=== PATIENT | male | born 1955 | race Caucasian/White ===

== ENCOUNTER 2022-05-26 11:12 | Emergency (ER) | payer MEDICARE, SELFPAY ==
--- NOTE | ~2022-05-26 | XR_ITS ---
EXAMINATION: XR hand LT 2V DATE: 05/26/2022 14:28 INDICATION: Dislocation of left fifth carpometacarpal joint status post reduction. TECHNIQUE: 3 views of left hand were obtained. COMPARISON: Left hand radiographs at 12:59 PM FINDINGS: There is persistent medial dislocation of fifth metacarpal with respect to distal hamate. T here are bone fragment remains near fifth carpometacarpal joint. There is radial subluxation of secon d distal phalanx with respect to the middle phalanx. There is mild osteoarthritis of triscaphe joint, first ca rpometacarpal joint, and many of the metacarpophalangeal joints and interphalangeal joints. There is moderate osteoarthritis of second and third metacarpophalangeal joints and first interphalangeal join t. There is severe osteoarthritis of second distal interphalangeal joint. IMPRESSION: 1. Persistent dislocation of fifth carpometacarpal joint. Small bone fragments may be fractures of di stal hamate and/or base of fifth metacarpal. 2. Polyarticular osteoarthritis. IMPRESSION: 1. Reviewed, dictated and finalized at location A. IMPRESSION: 1. Persistent dislocation of fifth carpometacarpal joint. Small bone fragments may be fractures of distal hamate and/or base of fifth metacarpal. 2. Polyarticular osteoarthritis. IMPRESSION: 1.
--- NOTE | ~2022-05-26 | XR_ITS ---
EXAMINATION: XR hand LT min 3V DATE: 05/26/2022 13:04 INDICATION: Left hand injury. TECHNIQUE: 3 views of left hand were obtained. COMPARISON: None. FINDINGS: There is medial dislocation of fifth metacarpal with respect to the hamate. There are small bone fragments near fifth carpometacarpal joint. There is radial subluxation of second distal phalan x with respect to the middle phalanx. There is mild osteoarthritis of triscaphe joint, first carpomet acarpal joint, and many of the metacarpophalangeal joints and interphalangeal joints. There is modera te osteoarthritis of second and third metacarpophalangeal joints and first interphalangeal joint. The re is severe osteoarthritis of second distal interphalangeal joint. IMPRESSION: 1. Dislocation of fifth carpometacarpal joint. Small bone fragments may be fractures of distal hamate and/or base of fifth metacarpal. 2. Polyarticular osteoarthritis. Reviewed, dictated and finalized at location A. IMPRESSION: 1. Dislocation of fifth carpometacarpal joint. Small bone fragments may be frac tures of distal hamate and/or base of fifth metacarpal. 2. Polyarticular osteoarthritis.
[2022-05-26 11:28] VITALS: BP 159/77; PULSE 61; RESP 16; TEMP 36.6; O2SAT 100
--- NOTE | 2022-05-26 12:47 | ED.UPPEXIN ---
HPI - Extremity Injury (Upper) General Chief Complaint: Extremity Injury, Upper Stated Complaint: dislocated L 5th digit, from Time Seen by Provider: 05/26/22 12:13 History of Present Illness HPI narrative: 67-year-old male presents to the emergency room for evaluation of injury to his left fifth digit. Patient states yesterday he lost his footing and slipped and fell landing on his left hand. Noticed an obvious bony abnormality. Patient was seen at an outside urgent care prior to ER evaluation and was told to come here because his finger was cut and needed to be reduced. Related Data Allergies Allergy/AdvReac Type Severity Reaction Status Date / Time benzonatate AdvReac Swelling Verified 05/26/22 11:39 [From Wilian Mares] lisinopril AdvReac Hives Verified 05/26/22 11:39 Review of Systems Review of Systems: CONSTITUTIONAL: Denies fever, chills, or sweats. EYES: Denies visual changes, redness, or discharge. ENT: Denies rhinorrhea, congestion, sore throat, or otalgia. CARDIOVASCULAR: Denies chest pain, palpitations, or edema. RESPIRATORY: Denies cough or dyspnea. GASTROINTESTINAL: Denies abdominal pain, nausea, vomiting, or diarrhea. GENITOURINARY: Denies dysuria or hematuria. SKIN: Denies rash or itching. MUSCULOSKELETAL: Reports left fifth digit pain NEUROLOGIC: Denies headache, numbness, dizziness, or weakness. PSYCHIATRIC: Denies anxiety or depression. Exam Narrative: GENERAL: Well-appearing, well-nourished, no physical limitations, and in no acute distress. HEAD: Normocephalic, atraumatic. EYES: Conjunctivae normal, PERRLA and EOMI. CHEST: Clear to auscultation. No respiratory distress. No wheezes rales or rhonchi. No tenderness. HEART: Regular rate and rhythm. No murmur heard. Normal peripheral pulses. EXTREMITIES: Left hand: Point tenderness with soft tissue swelling on the medial side and base the fifth metacarpal. Medially displaced fifth digit. Neurovascular is intact distally SKIN: Warm, dry, no rash. No noted wounds NEURO: No focal deficits. Alert and oriented x3. MAEW. CN's II-XI intact bilaterally, normal gait PSYCH: Cooperative. Normal mood and affect. Course Vital Signs Vital signs: Vital Signs Temperature 36.6 C 05/26/22 11:28 Pulse Rate 61 05/26/22 11:28 Respiratory Rate 16 05/26/22 11:28 Blood Pressure 159/77 H 05/26/22 11:28 Pulse Oximetry 100 05/26/22 11:28 Oxygen Delivery Room Air 05/26/22 11:28 Temperature 36.6 C 05/26/22 11:28 Pulse Rate 61 05/26/22 11:28 Respiratory Rate 16 05/26/22 11:28 Blood Pressure 159/77 H 05/26/22 11:28 Pulse Oximetry 100 05/26/22 11:28 Oxygen Delivery Room Air 05/26/22 11:28 MDM - Extremity Injury (Upper) Imaging Data Radiologist's impression: Impressions Hand X-Ray 05/26/22 13:05 IMPRESSION: 1. Dislocation of fifth carpometacarpal joint. Small bone fragments may be fractures of distal hamate and/or base of fifth metacarpal. 2. Polyarticular osteoarthritis. Hand X-Ray 05/26/22 14:31 IMPRESSION: 1. Persistent dislocation of fifth carpometacarpal joint. Small bone fragments may be fractures of distal hamate and/or base of fifth metacarpal. 2. Polyarticular osteoarthritis. IMPRESSION: 1. Discharge Plan Discharge Clinical Impression: Carpometacarpal joint dislocation, Closed hamate fracture Patient Disposition: Home, Self-Care Condition: Stable Instructions: Antibiotic Form, Arm Fracture in Adults (ED) Prescriptions: New hydrocodone-acetaminophen 5-325 mg tablet 1 tablet PO Q8H PRN (Reason: pain) Qty: 20 0RF Follow-up/Referrals: PHYSICIAN NOT ON STAFF,NONSTAFF [Primary Care Provider] - Time of Disposition: 14:51
== END 2022-05-26 16:20 | disposition home or self-care (01) ==
PROVIDERS: Emergency Provider Nurse Practitioner Family
DX: S62.142A Displaced fracture of body of hamate [unciform] bone, left wrist, initial encounter for closed fracture (principal); W01.0XXA Fall on same level from slipping, tripping and stumbling without subsequent striking against object, initial encounter
CPT/HCPCS: 26641; 26670; 73120; 73130; 99285